=== PATIENT | female | born 1970 | race African-American/Black ===

== ENCOUNTER → 2020-03-18 | Outpatient (CLI) | payer BC ==
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
== END ==
LOC: RAD 11:05
PROVIDERS: ATTEND Surgery
DX: M25.562 Pain in left knee (principal); M25.561 Pain in right knee; V99.XXXA Unspecified transport accident, initial encounter; Y93.89 Activity, other specified; Y92.89 Other specified places as the place of occurrence of the external cause; Y99.8 Other external cause status
CPT/HCPCS: 70150; 73562; 73565